=== PATIENT | male | born 1995 | race Two or more races ===

== ENCOUNTER 2016-10-26 00:10 | Emergency (ER) | payer OTHER ==
[~2016-10-26] VITALS: Ht 182.9 cm; Wt 95.7 kg
[2016-10-26 00:16] VITALS: BP 147/87
[2016-10-26] MEDS ORDERED: DEPA1TAB PO (00:21)
[2016-10-26] MEDS ORDERED: AMOX500T PO (00:21)
[2016-10-26] MEDS ORDERED: SERT25TA PO (00:21)
[2016-10-26] MEDS ORDERED: NEOSPORIN OINT 0.9 GM PKT (FLOOR STOCK) As Ordered ONE (01:00)
== END 2016-10-26 03:09 | disposition left against medical advice (07) ==
LOC: M ED 01:28
DX: Z53.29 Procedure and treatment not carried out because of patient's decision for other reasons (principal)

== ENCOUNTER 2018-06-23 13:46 | Emergency (ER) | payer OTHER ==
[~2018-06-23] VITALS: Ht 180.3 cm; Wt 77.4 kg
[~2018-06-23 13:46] MED LIST: AMOX500T PO; DEPA1TAB PO; SERT25TA PO
[2018-06-23] MEDS ORDERED: IBUP-1114 PO (14:12)
[2018-06-23] MEDS ORDERED: NS 1,000 ML IV ONE (14:45)
[2018-06-23 15:11] LABS: HEMATOCRIT 40.1 % (42.0-52.0); HEMOGLOBIN 13.9 g/dl (13.5-17.5); MEAN CORPUSCULAR HGB CONC 34.7 g/dl (32.0-36.5); MEAN CORPUSCULAR VOLUME 89.5 fl (80.0-96.0); PLATELET COUNT, AUTOMATED 212 10^3/uL (150-450); RED BLOOD COUNT 4.48 10^6/uL (4.30-6.10); WHITE BLOOD COUNT 10.5 10^3/uL (4.0-10.0)
[2018-06-23 15:32] LABS: ALBUMIN 4.1 GM/DL (3.2-5.2); ALT/SGPT 24 U/L (12-78); BILIRUBIN,TOTAL 0.4 MG/DL (0.2-1.0); BLOOD UREA NITROGEN 9 MG/DL (7-18); CARBON DIOXIDE LEVEL 29 MEQ/L (21-32); CHLORIDE LEVEL 104 MEQ/L (98-107); CREATININE FOR GFR 0.97 MG/DL (0.70-1.30); GLOMERULAR FILTRATION RATE > 60.0 (>60); GLUCOSE, FASTING 93 MG/DL (70-100); POTASSIUM SERUM 3.6 MEQ/L (3.5-5.1); SODIUM LEVEL 140 MEQ/L (136-145); TOTAL PROTEIN 7.2 GM/DL (6.4-8.2)
--- NOTE | 2018-06-23 15:36 | REP ---
CT Head without contrast HISTORY: Trauma COMPARISON: None There is no intraparenchymal hemorrhage, acute infarct, mass or midline shift. The ventricular system is normal in appearance. There is no extra cerebral collection. There is no fracture. The visualized sinuses are clear. IMPRESSION: There is no intracranial lesion. Electronically Signed by Leonid Kay MD 06/23/2018 03:27 P
[2018-06-23 16:38] VITALS: BP 124/59
--- NOTE | 2018-06-23 21:17 | ECGEPIP ---
Stationary ECG Study [facility] - ED Test Date: 2018-06-23 Pat Name: MENA MENCHACA Department: Room: - Gender: M [employer] Administrator: marin : [id number] Requested By: Xochitl Mcconnell Order Number: [id number] Reading MD: Clarence Willoughby Measurements Intervals [place] Rate: 53 P: 70 ND: 152 QRS: 69 QRSD: 110 T: 48 QT: 399 QTc: 378 Interpretive Statements SINUS BRADYCARDIA INCOMPLETE RIGHT BUNDLE BRANCH BLOCK NO PRIORS FOR COMPARISON Electronically Signed On 06-23-2018 21:17:20 EST by Clarence Willoughby
== END 2018-06-23 16:44 | disposition home or self-care (01) ==
LOC: M ED 13:46
DX: R55 Syncope and collapse (principal)